=== PATIENT | female | born 1945 | race Caucasian/White ===

== ENCOUNTER 2017-06-18 18:02 | Inpatient (IN) | payer OTHER, BC ==
--- NOTE | 2017-06-18 18:22 | PDOC ---
Rapid Medical Evaluation Time Seen by Provider: 06/18/17 18:22 Medical Evaluation: Allergies Allergy/AdvReac Type Severity Reaction Status Date / Time No Known Allergies Allergy Verified 01/13/17 10:59 06/18/17 18:22 I have performed a brief in-person evaluation of this patient. The patient presents with a chief complaint of: LLE pain and swelling getting worse x 1 month, seen by tree feller and sent in for possible LLE cellulitis. No fever/malaise. H/o venous insuff (f/u with Dr Carvajal), hypothyroid, Pertinent physical exam findings:Diffuse swelling w/ erythema extending to medial aspect of L thigh I have ordered the following:labs The patient will proceed to the ED for further evaluation Discharge Disposition - Diagnosis Cellulitis of leg Qualifiers: Laterality: left Qualified Code(s): L03.116 - Cellulitis of left lower limb - Referrals - Patient Instructions - Post Discharge Activity
[2017-06-18 19:33] LABS: BASO % 1.3 % (0-2.0); EOS % 2.8 % (0-4.5); HEMATOCRIT 35.9 % (32.4-45.2); HEMOGLOBIN 12.3 GM/dL (10.7-15.3); LYMPH % 24.8 % (8-40); MCH 30.4 pg (25.7-33.7); MCHC 34.3 g/dl (32.0-36.0); MEAN CELL VOLUME 88.6 fl (80-96); MEAN PLT VOLUME 8.4 fl (7.5-11.1); MONO % 8.9 % (3.8-10.2); NEUT % 62.2 % (42.8-82.8); PLATELET COUNT 215 K/MM3 (134-434); RBC 4.05 M/mm3 (3.60-5.2); RDW 13.6 % (11.6-15.6); WHITE BLOOD COUNT 6.1 K/mm3 (4.0-10.0)
--- NOTE | 2017-06-18 19:49 | PDOC ---
History of Present Illness - General Chief Complaint: Wound Stated Complaint: SWOLLEN LT LEG Time Seen by Provider: 06/18/17 18:22 - History of Present Illness Initial Comments: The patient is a 72 year old female, with a significant past medical history of hypothyroidism, HTN, who presents to the emergency department complaining of one month of L leg after rig hand procedure for endometrial sampling and/or D+C. Pt states she began having L inguinal pain roughly 6 weeks ago and received a TVUS notable for L ovarian cyst and endometrial thickening. Underwent procedure for endometrial sampling and D+C in early May. Pt states she received no ABX at the time. After procedure, pt endorses progressive medial thigh edema to mid calf and most recently, purulent The patient denies chest pain, shortness of breath, headache or dizziness. Endorsing chills for last month. Denies fever, nausea, vomiting, diarrhea. Denies dysuria, frequency, urgency and hematuria. Endorse foul smelling urine for last few days and intermittent constipation for the last month. Allergies: Erythromycin Past surgical history: none Social History: Denies toxic habits PMD: Dr. Lucas 06/18/17 19:24 Past History - Past Medical History Allergies/Adverse Reactions: Allergies Allergy/AdvReac Type Severity Reaction Status Date / Time erythromycin base AdvReac Verified 06/18/17 18:22 Home Medications: Ambulatory Orders Levothyroxine [Synthroid -] 50 mcg PO HS 06/18/17 Levothyroxine [Synthroid -] 75 mcg PO AM 06/18/17 Olmesartan/Hydrochlorothiazide [Benicar Hct 20-12.5MG Tab] 1 tab PO ASDIR COPD: No HTN: Yes Thyroid Disease: Yes (Hypothyroidism) - Suicide/Smoking/Psychosocial Hx Smoking History: Former smoker Have you smoked in the past 12 months: No Information on smoking cessation initiated: No Review of Systems - Review of Systems Comments:: GENERAL/CONSTITUTIONAL: +Chills for last month. No fever. No weakness. HEAD, EYES, EARS, NOSE AND THROAT: No change in vision. No ear pain or discharge. No sore throat. CARDIOVASCULAR: No chest pain or shortness of breath RESPIRATORY: No cough, wheezing, or hemoptysis. GASTROINTESTINAL: No nausea, vomiting, diarrhea or constipation. GENITOURINARY: Foul smelling urine. No dysuria, frequency, or change in urination. MUSCULOSKELETAL: No joint or muscle swelling or pain. No neck or back pain. SKIN: No rash NEUROLOGIC: No headache, vertigo, loss of consciousness, or change in strength/ sensation. ENDOCRINE: No increased thirst. No abnormal weight change HEMATOLOGIC/LYMPHATIC: No anemia, easy bleeding, or history of blood clots. ALLERGIC/IMMUNOLOGIC: No hives or skin allergy. EXTREMITIES: L leg swelling, erythema. 06/18/17 19:24 06/18/17 21:52 *Physical Exam - Vital Signs Last Vital Signs Temp Pulse Resp BP Pulse Ox 99 F 87 19 131/78 100 06/18/17 18:23 06/18/17 18:23 06/18/17 18:23 06/18/17 18:23 06/18/17 18:23 - Physical Exam Comments: GENERAL: Elderly obese, woman, awake, alert, and fully oriented, in no acute distress HEAD: No signs of trauma, normocephalic, atraumatic EYES: PERRLA, EOMI, sclera anicteric, conjunctiva clear ENT: Auricles normal inspection, hearing grossly normal, nares patent, oropharynx clear without exudates. Moist mucosa NECK: Normal ROM, supple, no lymphadenopathy, JVD, or masses LUNGS: No distress, speaks full sentences, clear to auscultation bilaterally HEART: Regular rate and rhythm, normal S1 and S2, no murmurs, rubs or gallops, peripheral pulses normal and equal bilaterally. ABDOMEN: Soft, nontender, normoactive bowel sounds. No guarding, no rebound. No masses EXTREMITIES : Large region of erythema/edema on medial thigh and upper shank, warm to touch with no open lesions, nontender to palpation. BL venous stasis dermatitis. Lower anterior caldwell wound with purulent drainage, nonfluctuant, TTP with trace marginal erythema. 2+ DIRECTOR OF STATE edema. No clubbing or cyanosis. BL nonpalpable PT, DP pulses. NEUROLOGICAL: Cranial nerves II through XII grossly intact. Normal speech, normal gait, no focal sensorimotor deficits SKIN: Warm, Dry, normal turgor, no rashes or lesions noted 06/18/17 21:53 ED Treatment Course - LABORATORY CBC & Chemistry Diagram: 06/18/17 19:07 06/18/17 19:07 Medical Decision Making - Medical Decision Making 72 yo woman with pmh of hypothyroidism and HTN who presents with one month of L leg erythema/edema and purulent wound on anterior distal caldwell. VSS, no fever, no WBC count. CBC, CMP, blood cultures sent. Will order CXR, EKG, wound culture , UA, L leg XR. Will consult ID and vascular and admit to hospitalist group for observation. Ordered for 1x dose of vancomycin. 06/18/17 21:56 Discussed case with Hospitalist Dr. Wright. Will admit to M/S for IV abx. ID and Vascular consulted. 06/18/17 22:26 *DC/Admit/Observation/Transfer Diagnosis at time of Disposition: Cellulitis of leg Qualifiers: Laterality: left Qualified Code(s): L03.116 - Cellulitis of left lower limb - Discharge Dispostion Decision to Admit order: Yes - Referrals Referrals: Tony Lucas MD [Primary Care Provider] - - Patient Instructions - Post Discharge Activity
[2017-06-18 19:52] LABS: CHLORIDE 106 mmol/L (98-107); SODIUM 141 mmol/L (136-145)
[2017-06-18 20:03] LABS: ALBUMIN 3.8 g/dl (3.4-5.0); ALK PHOS 62 U/L (45-117); ANION GAP 7 (8-16); BILIRUBIN,TOTAL 0.5 mg/dL (0.2-1.0); BLOOD UREA NITROGEN 16 mg/dL (7-18); CALCIUM 9.3 mg/dL (8.5-10.1); CO2 28 mmol/L (21-32); GLUCOSE,RANDOM 113 mg/dL (74-106); SGOT/AST 17 U/L (15-37); SGPT/ALT 22 U/L (12-78); TOT PROT 7.2 g/dl (6.4-8.2)
[2017-06-18] MEDS ORDERED: VANCOMYCIN 1,250 MG in DEXTROSE 5%-WATER - 250 ML IVPB ONE (21:38)
[2017-06-18 22:00] LABS: URINE APPEARANCE SLCLOUDY; URINE BILIRUBIN NEGATIVE (<2.0 mg/dL); URINE COLOR YELLOW; URINE GLUCOSE (UA) NEGATIVE (NEGATIVE); URINE KETONE NEGATIVE (NEGATIVE); URINE LEUK ESTERASE NEGATIVE (NEGATIVE); URINE NITRITE NEGATIVE (NEGATIVE); URINE PROTEIN NEGATIVE (NEGATIVE); URINE UROBILINOGEN 4.0 E.U/dl mg/dL (0.2-1.0)
--- NOTE | 2017-06-18 22:31 | HP ---
CHIEF COMPLAINT: sent by MD for left lower leg wound PCP: Dr. Lucas HISTORY OF PRESENT ILLNESS: 72yo woman with PMH of HTN, hypothyroidism, chronic LE venous insufficiency, and recent endometrial biopsy who presents to ED from her nurse aide evaluator/PCP for LLE swelling and purulent wound on L lower anterior ankle. Patient saw Dr. Carvajal in January 2017, found to have venous reflux, and was planning to have ablation. Since then she developed L inguinal pain, which is currently being worked-up by OBGYN as there is concern for endometrial cancer (thickened endometrial strip on TVUS, early menarche, DTR with Breast Ca). Patient underwent attempted endometrial sampling in May, however bx unable to be obtained due to pt's anatomy. After the procedure, the patient reports worsening L medial calf and thigh swelling. Two days ago she had duplex ultrasound, which was negative for DVT. Starting yesterday, she noticed that her L ankle started to drain clear fluid. She went to her Telegraphic Typewriter Installer today, who sent her to ED for further evaluation. Patient denies any recent trauma to the area. Denies fevers, but endorses chills for last month. No nausea, vomiting, diarrhea. Denies dysuria, frequency, urgency and hematuria. Endorse foul smelling urine for last few days and intermittent constipation for the last month. ER course was notable for: (1) Afebrile, no leukocytosis (2) 1x Vanc 1250mg IVP (3) L tibial/fibula XRAY: e/o soft tissue swelling over proximal tibial shaft Recent Travel: none PAST MEDICAL HISTORY: see HPI Hypothyroidism - PCP increased AM dose from 50 to 75mcg on 06/13/17 HTN - on Benicar Q4Days - due for dose today PAST SURGICAL HISTORY: colonoscopy within past year - "normal" Social History: Smoking: quit 52 years ago, smoked for 2-3years Alcohol: social Drugs: denies Family History: daughter with thyroid Ca and daughter with breast Ca Allergies/Adverse Reactions: Erythromycin --> "upset my hiatal hernia" HOME MEDICATIONS: Home Medications Medication Instructions Recorded Levothyroxine [Synthroid -] 50 mcg PO HS 06/18/17 Levothyroxine [Synthroid -] 75 mcg PO AM 06/18/17 Olmesartan/Hydrochlorothiazide 1 tab PO ASDIR 06/18/17 [Benicar Hct 20-12.5MG Tab] REVIEW OF SYSTEMS CONSTITUTIONAL: +chills Absent: fever, diaphoresis, generalized weakness, malaise, loss of appetite, weight change HEENT: Absent: rhinorrhea, nasal congestion, throat pain, throat swelling, difficulty swallowing, mouth swelling, ear pain, eye pain, visual changes CARDIOVASCULAR: Absent: chest pain, syncope, palpitations, irregular heart rate, lightheadedness , peripheral edema RESPIRATORY: Absent: cough, shortness of breath, dyspnea with exertion, orthopnea, wheezing, stridor, hemoptysis GASTROINTESTINAL: Absent: abdominal pain, abdominal distension, nausea, vomiting, diarrhea, constipation, melena, hematochezia GENITOURINARY: Absent: dysuria, frequency, urgency, hesitancy, hematuria, flank pain, genital pain MUSCULOSKELETAL: Absent: myalgia, arthralgia, joint swelling, back pain, neck pain SKIN: Absent: rash, itching, pallor HEMATOLOGIC/IMMUNOLOGIC: Absent: easy bleeding, easy bruising, lymphadenopathy, frequent infections ENDOCRINE: Absent: unexplained weight gain, unexplained weight loss, heat intolerance, cold intolerance NEUROLOGIC: Absent: headache, focal weakness or paresthesias, dizziness, unsteady gait, seizure, mental status changes, bladder or bowel incontinence PSYCHIATRIC: Absent: anxiety, depression, suicidal or homicidal ideation, hallucinations. PHYSICAL EXAMINATION Vital Signs - 24 hr 06/18/17 18:23 Temperature 99 F Pulse Rate 87 Respiratory 19 Rate Blood Pressure 131/78 O2 Sat by Pulse 100 Oximetry (%) GENERAL: aaox3, nad HEENT: PERRLA, EOMI, sclera anicteric, conjunctiva clear, mmm, no pharygeal erythema NECK: supple, no cervical LAD LUNGS: CTAB HEART: rrr, normal s1/s2, no m/r/g ABDOMEN: soft, obese, NTND UPPER EXTREMITIES: 2+ radial pulses, wwp, no edema LOWER EXTREMITIES: 2+ DP pulses, B/L venous stasis dermatitis, L distal anterior caldwell lesion with purulent drainage, calor, rubor, and ttp. L medial calf and lower thigh with erythema, but no ttp; 2+ non-pitting edema bilaterally. No L inguinal LAD NEUROLOGICAL: Cranial nerves II-XII intact. motor strength 5/5 in all 4 extremities; sensation intact bilaterally CBC, BMP 06/18/17 19:07 06/18/17 19:07 Hepatic Panel Total Bilirubin 0.5 mg/dL (0.2-1.0) 06/18/17 19:07 AST 17 U/L (15-37) 06/18/17 19:07 ALT 22 U/L (12-78) 06/18/17 19:07 Alkaline Phosphatase 62 U/L (45-117) 06/18/17 19:07 Albumin 3.8 g/dl (3.4-5.0) 06/18/17 19:07 Urine Test Results Urine Color Yellow 06/18/17 21:53 Urine Appearance Slcloudy 06/18/17 21:53 Urine pH 6.0 (5.0-8.0) 06/18/17 21:53 Ur Specific [place] 1.017 (1.001-1.035) 06/18/17 21:53 Urine Protein Negative (NEGATIVE) 06/18/17 21:53 Urine Glucose (UA) Negative (NEGATIVE) 06/18/17 21:53 Urine Ketones Negative (NEGATIVE) 06/18/17 21:53 Urine Blood Negative (NEGATIVE) 06/18/17 21:53 Urine Nitrite Negative (NEGATIVE) 06/18/17 21:53 Urine Bilirubin Negative (<2.0 mg/dL) 06/18/17 21:53 Ur Leukocyte Esterase Negative (NEGATIVE) 06/18/17 21:53 EKG: NSR, rate 73, with PVCs, no ST/ T changes, QTc 440 CXR: no acute cardiopulmonary disease L Tibia/Fibula XRAY (06/18/17): significant soft tissue swelling along anterior margin of the proximal tibial shaft ASSESSMENT/PLAN: 72yo woman with PMH of hypothyroidism, HTN, LE venous insufficiency who sent by nurse aide evaluator/PCP to the ED for LLE swelling and L ankle skin lesion with purulent drainage concerning for cellulitis. #LLE cellulitis in setting of chronic venous insufficiency -ID consulted. Appreciate antibiotic recommendations -Received 1x Vanco 1.25gm IV Q12H --> next dose ordered for 10:30 -Ceftriaxone 2gm IV Q24H for GN coverage -Check ESR, CRP -Check wound culture #LLE swelling and chronic venous insufficiency -Vascular surgery (Dr. Carvajal) consulted -Check LLE Duplex U/S to r/o DVT #HTN - c/w home Benicar Q4D (took dose today) #Hypothyroidism - c/w home Synthroid 75mcg AM and 50mcg HS #FEN PO intake lytes wnl Na controlled diet #PPX - Lovenox 40mg SQ #DISPO: m/s FULL code plan d/w Dr. Adriana Adams MD PGY1 - Internal Medicine, Night Kitchen Aide Visit type - Emergency Visit Emergency Visit: Yes ED Registration Date: 06/18/17 Care time: The patient presented to the Emergency Department on the above date and was hospitalized for further evaluation of their emergent condition. - New Patient This patient is new to me today: Yes Date on this admission: 06/19/17 - Critical Care Critical Care patient: No Hospitalist Screening - Colonoscopy Questionnaire Colonoscopy Questionnaire: Colonoscopy Questionnaire - Patient: 50 - 75 years old and never had a screening colonoscopy: No History of colon or rectal polyps, or CA: No History of IBD, Crohn's disease or UC: No History of abdominal radiation therapy as a child: No - Relative: 1 with colon or rectal CA, or polyps at age 60 or younger: Unknown Colon or rectal CA diagnosed at age 45 or younger: Unknown Multiple relatives with colon or rectal CA: Unknown - Outcome: Screening Result: Negative Screen
--- NOTE | 2017-06-18 22:42 | PDOC ---
Attending Attestation - HPI HPI: 06/18/17 22:50 The patient is a 72 year old female with past medical history of hypothyroidism , hypertension, and recent endometrial biopsy last month who presents to the ED with complaints of left inguinal pain for the past month. She reports that since her procedure her left inner thigh has been tender, swollen and recently became purulent. She denies any abdominal pain. After the procedure she was never given antibiotics. The patient denies any fevers but reports chills. She also reports having chronic venous stasis with presence of purulent wounds that her PMD wanted to be evaluated. Denies any nausea, vomiting, diarrhea, cough , SOB, CP, or urinary symptoms. - Physicial Exam PE: 06/18/17 22:50 GENERAL: Anxious. Awake, alert, and fully oriented, in no acute distress HEAD: No signs of trauma EYES: PERRLA, EOMI, sclera anicteric, conjunctiva clear ENT: Auricles normal inspection, hearing grossly normal, nares patent, oropharynx clear without exudates. Moist mucosa NECK: Normal ROM, supple, no lymphadenopathy, JVD, or masses LUNGS: Breath sounds equal, clear to auscultation bilaterally. No wheezes, and no crackles HEART: Regular rate and rhythm, normal S1 and S2, no murmurs, rubs or gallops ABDOMEN: Obese. Soft, nontender, normoactive bowel sounds. No guarding, no rebound. No masses EXTREMITIES: R leg has chronic venous stasis of the mid tibia, distal to ankle. LLE has calf swelling with hot, tender, red cellulitis ranging proximally from ankle to tibia/fibula with lymphangetic streak to mid quad. There is also an ulcer with purulent drainage in the anterior tibula region. Normal range of motion. No clubbing or cyanosis. NEUROLOGICAL: Cranial nerves II through XII grossly intact. Normal speech, normal gait SKIN: Warm, Dry, normal turgor, no rashes or lesions no - Medical Decision Making 06/18/17 22:50 Documentation prepared by Soledad Pinto, acting as certified medical biller for Jovita Sepulveda DO. <Soledad Pinto - Last Filed: 06/18/17 22:50> - Resident Resident Name: Manuel Corbin - ED Attending Attestation I have performed the following: I have examined & evaluated the patient, The case was reviewed & discussed with the resident, I agree w/resident's findings & plan, Exceptions are as noted - Medical Decision Making 06/18/17 22:41 I, Dr. Jovita Sepulveda, DO, attest that this document has been prepared under my direction and personally reviewed by me in its entirety. I further attest, that it accurately reflects all work, treatment, procedures and medical decision -making performed by me. 06/18/17 23:02 a/p: 72yo female with L leg swelling -wound to the distal L tibia with purulent drainage -cellulitis to L leg with lymphangitic spread -will check labs, cultures, will start abx -consult placed to ID and vascular sx -will check xrays -no fluctuance, no crepitus -will need admission <Jovita Sepulveda - Last Filed: 06/18/17 23:11> Heart Score/ECG Review - ECG Intrepretation Comment:: 06/18/17 22:41 sinus at 72, nl axis, low voltage, pvc, no acute st/t wave findings <Jovita Sepulveda - Last Filed: 06/18/17 23:11>
[2017-06-18] MEDS ORDERED: PATIENT'S OWN MEDICATION (NON-FORMULARY) (Olmesartan/Hydrochlorothiazide [Benicar Hct 20-1 PO SCH (23:30)
[2017-06-18] MEDS ORDERED: VALSARTAN 160 MG TABLET (UD) PO SCH (23:45)
[2017-06-18] MEDS ORDERED: HYDROCHLOROTHIAZIDE 12.5 MG CAPSULE (FP) PO SCH (23:45)
[2017-06-18] MEDS ORDERED: CEFTRIAXONE 2 GM in DEXTROSE 5%-WATER 100 ML IVPB ONE (23:56)
[2017-06-19] MEDS: PATIENT'S OWN MEDICATION (NON-FORMULARY) (Olmesartan/Hydrochlorothiazide [Benicar Hct 20-1 PO SCH (01:06)
[2017-06-19] MEDS ORDERED: LEVOTHYROXINE NA 25 MCG TABLET (FP) ONE (01:16)
[2017-06-19] MEDS ORDERED: CEFTRIAXONE 2 GM/100 ML BAG IVPB ONE (01:17)
[2017-06-19] MEDS: LEVOTHYROXINE NA 50 MCG TABLET (FP) PO SCH ×2 (01:27→22:07)
--- NOTE | 2017-06-19 01:39 | PN ---
Teaching Attending Note Name of Resident: Carmen Adams ATTENDING PHYSICIAN STATEMENT I saw and evaluated the patient. Chart, data, imaging reviewed. I reviewed the resident's note and discussed the case with the resident. I agree with the resident's findings and plan as documented. SUBJECTIVE: 72 year old woman with past medical history of hypothyroidism, hypertension, and recent endometrial biopsy one month ago c/o of left inguinal pain after tour narrator procedure and left inner thigh and leg pain associated with redness and warmth of left leg. Denied fevers and chills. Has not taken any antibiotics recently. OBJECTIVE: Last Vital Signs Temp Pulse Resp BP Pulse Ox 99 F 87 19 131/78 100 06/18/17 18:23 06/18/17 18:23 06/18/17 18:23 06/18/17 18:23 06/18/17 18:23 general- nad, aaox3, morbdily obese heent- at, nc, moist oral mucosa neck -supple cv -s1+s2+ rrr chest- cta b/l abdomen -obese ext -b/l chronic venous stasis changes, left leg erythema, warmth, seeping d/c, and some tenderness to palpation Abnormal Lab Results 06/18/17 06/18/17 19:07 21:53 Anion Gap 7 L Random Glucose 113 H Urine Urobilinogen 4.0 e.u/dl H ASSESSMENT AND PLAN: #B/l lower extremity chronic venous stasis with left leg superimposed cellulitis. Possible that OBGYN procedure induced cellulitis by hematologic seeding. -admit to med/surg -repeat lower extremity duplex u/s to r/o dvt -vancomycin 1.25g iv q12hrs -ceftriaxone 2g IV q 24hrs -leg elevation -send blood cultures x2 -tylenol prn for pain management -ID and vascular evaluation -esr, crp -continue home meds -heparin sc for dvt ppx
[2017-06-19] MEDS ORDERED: diphenhydrAMINE HCL 25 MG CAPSULE (FP) PO PRN (02:23)
[2017-06-19] MEDS: LEVOTHYROXINE NA 75 MCG TABLET (FP) PO SCH (06:31)
--- NOTE | 2017-06-19 09:25 | PN ---
Teaching Attending Note Name of Resident: Dilma Diaz ATTENDING PHYSICIAN STATEMENT I saw and evaluated the patient. I reviewed the resident's note and discussed the case with the resident. I agree with the resident's findings and plan as documented. SUBJECTIVE: Patient is feeling better with no acute distress, stated that she is feeling better. OBJECTIVE: Vital Signs Temperature 97.9 F 06/19/17 04:50 Pulse Rate 79 06/19/17 04:50 Respiratory Rate 20 06/19/17 04:50 Blood Pressure 130/84 06/19/17 04:50 O2 Sat by Pulse Oximetry (%) 95 06/19/17 04:34 CBCD WBC 6.1 K/mm3 (4.0-10.0) 06/18/17 19:07 RBC 4.05 M/mm3 (3.60-5.2) 06/18/17 19:07 Hgb 12.3 GM/dL (10.7-15.3) 06/18/17 19:07 Hct 35.9 % (32.4-45.2) 06/18/17 19:07 MCV 88.6 fl (80-96) 06/18/17 19:07 MCHC 34.3 g/dl (32.0-36.0) 06/18/17 19:07 RDW 13.6 % (11.6-15.6) 06/18/17 19:07 Plt Count 215 K/MM3 (134-434) 06/18/17 19:07 MPV 8.4 fl (7.5-11.1) 06/18/17 19:07 CMP Sodium 141 mmol/L (136-145) 06/18/17 19:07 Potassium 4.0 mmol/L (3.5-5.1) 06/18/17 19:07 Chloride 106 mmol/L (98-107) 06/18/17 19:07 Carbon Dioxide 28 mmol/L (21-32) 06/18/17 19:07 Anion Gap 7 (8-16) L 06/18/17 19:07 BUN 16 mg/dL (7-18) 06/18/17 19:07 Creatinine 1.0 mg/dL (0.55-1.02) 06/18/17 19:07 Creat Clearance w eGFR 54.35 (>60) 06/18/17 19:07 Random Glucose 113 mg/dL (74-106) H 06/18/17 19:07 Calcium 9.3 mg/dL (8.5-10.1) 06/18/17 19:07 Total Bilirubin 0.5 mg/dL (0.2-1.0) 06/18/17 19:07 AST 17 U/L (15-37) 06/18/17 19:07 ALT 22 U/L (12-78) 06/18/17 19:07 Alkaline Phosphatase 62 U/L (45-117) 06/18/17 19:07 Total Protein 7.2 g/dl (6.4-8.2) 06/18/17 19:07 Albumin 3.8 g/dl (3.4-5.0) 06/18/17 19:07 Current Medications Generic Name Dose Route Start Last Admin Trade Name Freq PRN Reason Stop Dose Admin Acetaminophen 650 mg 06/18/17 23:17 Tylenol - PO Q6H PRN PAIN LEVEL 6-10 Diphenhydramine HCl 25 mg 06/19/17 02:23 Benadryl - PO 06/20/17 02:22 ONCE PRN FOR ITCHING Enoxaparin Sodium 40 mg 06/19/17 10:00 Lovenox - SQ DAILY BENITA Ceftriaxone Sodium 2 gm/ 100 mls @ 100 mls/hr 06/19/17 23:00 Dextrose IVPB 06/19/17 23:59 ONCE ONE Vancomycin HCl 1,250 mg/ 250 mls @ 250 mls/2 hr 06/19/17 10:30 Dextrose IVPB 06/19/17 12:29 ONCE ONE Protocol Levothyroxine Sodium 50 mcg 06/18/17 22:00 06/19/17 01:27 Synthroid - PO 50 mcg HS BENITA Administration Levothyroxine Sodium 75 mcg 06/19/17 07:00 06/19/17 06:31 Synthroid - PO 75 mcg AM BENITA Administration Non-Formulary Medication 1 tab 06/18/17 23:59 06/19/17 01:06 Olmesartan/Hydrochlorothiazide [Benicar Hct 20-12.5mg Tab -] PO 1 tab Q4D@1000 BENITA Administration Home Medications Medication Instructions Recorded Levothyroxine [Synthroid -] 50 mcg PO HS 06/18/17 Levothyroxine [Synthroid -] 75 mcg PO AM 06/18/17 Olmesartan/Hydrochlorothiazide 1 tab PO ASDIR 06/18/17 [Benicar Hct 20-12.5MG Tab] PE: LLE chronic statis with cellulitis rest of Pe per resident's note EKG: NSR, rate 73, with PVCs, no ST/ T changes, QTc 440 CXR: no acute cardiopulmonary disease L Tibia/Fibula XRAY (06/18/17): significant soft tissue swelling along anterior margin of the proximal tibial shaft ASSESSMENT AND PLAN: 72yo woman with PMH of hypothyroidism, HTN, LE venous insufficiency who sent by information lead/PCP to the ED for LLE swelling and L ankle skin lesion with purulent drainage concerning for cellulitis. #Acute LLE cellulitis in setting of chronic venous insufficiency, continue IV antibiotic Rocephin and Vanco; ID and Vascular on the case. -Check LLE Duplex U/S to r/o DVT #HTN - c/w home Benicar Q4D (took dose today) #Hypothyroidism - continue home Synthroid 75mcg AM and 50mcg HS #PPX - Lovenox 40mg SQ
[2017-06-19] MEDS ORDERED: PT OWN MED DRAWER 7, Y5N ONE (09:39)
[2017-06-19] MEDS: ENOXAPARIN NA (PORCINE) 40 MG/0.4 ML DISP.SYRIN SQ SCH (09:42)
[2017-06-19 10:12] LABS: BASO % 2.6 % (0-2.0); EOS % 2.2 % (0-4.5); HEMATOCRIT 37.4 % (32.4-45.2); HEMOGLOBIN 12.8 GM/dL (10.7-15.3); LYMPH % 27.6 % (8-40); MCH 30.5 pg (25.7-33.7); MCHC 34.4 g/dl (32.0-36.0); MEAN CELL VOLUME 88.9 fl (80-96); MEAN PLT VOLUME 8.1 fl (7.5-11.1); MONO % 7.7 % (3.8-10.2); NEUT % 59.9 % (42.8-82.8); PLATELET COUNT 217 K/MM3 (134-434); RBC 4.21 M/mm3 (3.60-5.2); RDW 13.9 % (11.6-15.6); WHITE BLOOD COUNT 6.3 K/mm3 (4.0-10.0)
[2017-06-19 10:25] LABS: ANION GAP 7 (8-16); BLOOD UREA NITROGEN 13 mg/dL (7-18); CALCIUM 9.8 mg/dL (8.5-10.1); CHLORIDE 104 mmol/L (98-107); CO2 28 mmol/L (21-32); GLUCOSE,RANDOM 95 mg/dL (74-106); SODIUM 139 mmol/L (136-145)
[2017-06-19] MEDS ORDERED: VANCOMYCIN 1,250 MG in DEXTROSE 5%-WATER - 250 ML IVPB ONE (10:30)
--- NOTE | 2017-06-19 11:43 | EKG ---
Test Reason : Blood Pressure : / mmHG Vent. Rate : 073 BPM Atrial Rate : 073 BPM P-R Int : 172 ms QRS Dur : 086 ms QT Int : 400 ms P-R-T Axes : 053 017 019 degrees QTc Int : 440 ms SINUS RHYTHM WITH OCCASIONAL PREMATURE VENTRICULAR COMPLEXES LOW VOLTAGE QRS CANNOT RULE OUT ANTERIOR INFARCT , AGE UNDETERMINED ABNORMAL ECG NO PREVIOUS ECGS AVAILABLE Confirmed by JESSICA ELLIS MD ([id number]) on 06/19/2017 11:43:19 AM Referred By: Confirmed By:JESSICA ELLIS MD
--- NOTE | 2017-06-19 14:33 | PN ---
Physical Exam: SUBJECTIVE: Patient seen and examined at bedside. States that her L inguinal pain has improved greatly while she has been on abx. Has been ambulating freely. Denies GARCIA, fever, chills, SOB, or changes in urinary or bowel function. OBJECTIVE: Vital Signs Period Temp Pulse Resp BP Sys/Dunbar Pulse Ox Last 24 Hr 97.2 F-99 F 69-87 19-20 114-131/53-84 95-100 GENERAL: Pleasant female. sitting comfortably. awake, alert, and fully oriented , in no acute distress. HEAD: Normal with no signs of trauma. EYES: PERRL, extraocular movements intact, sclera anicteric, conjunctiva clear. ENT: Ears normal, nares patent, oropharynx clear without exudates, moist mucous membranes. NECK: Trachea midline, supple. LUNGS: Breath sounds equal, clear to auscultation bilaterally, no wheezes, no crackles, no accessory muscle use. HEART: Regular rate and rhythm, S1, S2 without murmur, rub or gallop. ABDOMEN: Soft, obese, nontender, nondistended, normoactive bowel sounds, no guarding, no rebound EXTREMITIES: 2+ dorsalis pedis pulses. +b/l venous insufficiency, +L anterior ankle wound - with serous drainage. increased warmth in LE>RE NEUROLOGICAL: Cranial nerves II through XII grossly intact. Normal speech PSYCH: Positive mood, normal affect. SKIN: Warm, dry, normal turgor, no rashes or lesions noted Laboratory Results 06/18/17 06/18/17 06/18/17 19:07 19:07 21:53 WBC 6.1 RBC 4.05 Hgb 12.3 Hct 35.9 MCV 88.6 MCH 30.4 MCHC 34.3 RDW 13.6 Plt Count 215 MPV 8.4 Neutrophils % 62.2 Lymphocytes % 24.8 Monocytes % 8.9 Eosinophils % 2.8 Basophils % 1.3 ESR Sodium 141 Potassium 4.0 Chloride 106 Carbon Dioxide 28 Anion Gap 7 L BUN 16 Creatinine 1.0 Creat Clearance w eGFR 54.35 Random Glucose 113 H Calcium 9.3 Total Bilirubin 0.5 AST 17 ALT 22 Alkaline Phosphatase 62 C-Reactive Protein Total Protein 7.2 Albumin 3.8 Urine Color Yellow Urine Appearance Slcloudy Urine pH 6.0 Ur Specific [place] 1.017 Urine Protein Negative Urine Glucose (UA) Negative Urine Ketones Negative Urine Blood Negative Urine Nitrite Negative Urine Bilirubin Negative Urine Urobilinogen 4.0 e.u/dl H Ur Leukocyte Esterase Negative 06/19/17 06/19/17 06/19/17 00:39 00:39 09:50 WBC 6.3 RBC 4.21 Hgb 12.8 Hct 37.4 MCV 88.9 MCH 30.5 MCHC 34.4 RDW 13.9 Plt Count 217 MPV 8.1 Neutrophils % 59.9 Lymphocytes % 27.6 Monocytes % 7.7 Eosinophils % 2.2 Basophils % 2.6 H ESR 54 H Sodium Chloride Alkaline Phosphatase C-Reactive Protein 2.4 H Total Protein Urine Urobilinogen Ur Leukocyte Esterase Active Medications Generic Name Dose Route Start Last Admin Trade Name Freq PRN Reason Stop Dose Admin Acetaminophen 650 mg 06/18/17 23:17 Tylenol - PO Q6H PRN PAIN LEVEL 6-10 Diphenhydramine HCl 25 mg 06/19/17 02:23 Benadryl - PO 06/20/17 02:22 ONCE PRN FOR ITCHING Enoxaparin Sodium 40 mg 06/19/17 10:00 06/19/17 09:42 Lovenox - SQ 40 mg DAILY BENITA Administration Cefazolin Sodium 2 gm/ 50 mls @ 100 mls/hr 06/19/17 14:30 Dextrose IVPB Q8H-IV BENITA Levothyroxine Sodium 50 mcg 06/18/17 22:00 06/19/17 01:27 Synthroid - PO 50 mcg HS BENITA Administration Levothyroxine Sodium 75 mcg 06/19/17 07:00 06/19/17 06:31 Synthroid - PO 75 mcg AM BENITA Administration Non-Formulary Medication 1 tab 06/18/17 23:59 06/19/17 01:06 Olmesartan/Hydrochlorothiazide [Benicar Hct 20-12.5mg Tab -] PO 1 tab Q4D@1000 BENITA Administration Radiology -06/18/17: no acute cardiopulmonary disease is present. 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 Pt admitted for LLE cellulitis, lymphangitis. #LLE cellulitis, lymphangitis -with resolved tenderness in L groin, erythema, edema in LLE. Tracking up leg -With elevated ESR (54), CRP (2.4) -Received vancomycin 1.25g IVPB BID, rocephin 2gm IVPB - received one dose () has been d/c -d/w Dr. Bond - started on cefazolin 2gm IVPB q8h (Today is Day 1- 06/19/17) -F/u gram stain, wound cx, blood cx #LLE swelling, chronic venous insufficiency -Vascular consult- Dr. Carvajal -LLE duplex: (-) DVT #HTN- controlled -Continue olmesartan/HCTZ (20-12.5mg) q4d #Hypothyroidism -Continue home synthroid 75mcg AM, 50 mcg HS #F/E/N Encourage PO fluid intake monitor lytes Na controlled diet #PPX Lovenox 40mg SQ #Dispo continued monitoring on med-surg Visit type - Emergency Visit Emergency Visit: No - New Patient This patient is new to me today: No - Critical Care Critical Care patient: No
--- NOTE | 2017-06-19 14:53 | PN ---
Progress Note (short form) - Note Progress Note: ID Consult dictated Cellulitis / Lymphangitis L LE Chronic venous stasis dermatitis Await c/s Empiric cefazolin 2gm q8h
[2017-06-19] MEDS: CEFAZOLIN 2 GM/D5W 2 GM/50 ML ML IVPB SCH ×2 (15:25→20:20)
--- NOTE | 2017-06-19 15:57 | PN ---
Progress Note (short form) - Note Progress Note: Vascular Surgery Pt with left venous stasis. Pt with pain in hyperpigmented area. IV antibiotics Leg elevation MERLE for compression. Jasmeet Carvajal DO
--- NOTE | 2017-06-19 16:44 | CONS ---
INFECTIOUS DISEASE CONSULTATION DATE OF CONSULTATION: DATE OF DICTATION: 06/19/2017 The patient is a 72-year-old female who is evaluated for cellulitis and lymphangitis of the left lower extremity. Patient underwent an attempted D&C in early May 2017. According to the notes, she was noted to have endometrial thickening on a transvaginal sonogram. The patient reports that the procedure was unsuccessful as the treating plant pumper was unable to perform the D&C. She reports that since that time she has developed progressively worsening pain and swelling in the left lower extremity. She noted erythema of the left lower extremity with lymphangitic streaking. A Doppler exam was performed and was negative for DVT. She was evaluated in the hospital where she was diagnosed with left lower extremity cellulitis and lymphangitis. She was empirically treated with vancomycin and ceftriaxone. At the present time, she complains of pain in the left lower extremity and left medial thigh. She denies any traumatic injury to her left lower extremity. No insect or animal bites or scratches. She denies any associated fever or chills. The patient states she has not had a history of serious soft tissue infection requiring hospitalization and has not had a history of MRSA. PAST MEDICAL HISTORY: Positive for hypothyroidism, hypertension, chronic venous stasis dermatitis. ALLERGIES: ERYTHROMYCIN. MEDICATIONS: Include Tylenol, Lovenox, Benadryl, Synthroid. SOCIAL HISTORY: Lives at home with family members. Denies any recent hospitalizations. She is a former smoker. Occasional EtOH. SYSTEMS REVIEW: Neurologic: No loss of consciousness, seizure activity, focal weakness. Cardiac: Negative chest pain or palpitations. Respiratory: Negative cough or sputum production. Gastrointestinal: Negative vomiting or diarrhea. Genitourinary: Negative for urinary tract infection. LABORATORY DATA: White count 6.3, hematocrit 37.4, platelet count 217. BUN 13, creatinine 1.0. Urinalysis negative. Chest x-ray negative. Blood cultures pending. ESR 54. PHYSICAL EXAMINATION: General: She is awake and alert. She is not acutely toxic appearing. Vital Signs: Temperature 97.9; blood pressure 114/53; pulse 84, regular; respirations 20 per minute. HEENT: Sclerae are anicteric. Heart: Sounds S1, S2. Lungs: Clear. Abdomen: Obese, soft, nontender. Lower Extremities: Bilateral lower extremity chronic venous stasis dermatitis. There is erythema present superimposed on the area of stasis dermatitis extending from the distal left lower extremity to the area of the knee. It extends to the medial thigh. The area is warm and tender to touch. No erythema noted, proximal thigh. No palpable inguinal adenopathy. IMPRESSION: 1. Cellulitis/lymphangitis, left lower extremity. 2. Rule out sepsis secondary to skin source. 3. Chronic venous stasis dermatitis. Await cultures. Empiric antibiotic coverage with cefazolin 2 g IV piggyback every 8 hours. Elevation. Analgesics. Will follow. Thank you for the kind referral. DANNY LOPEZ M.D. ANATOLY/[id number]
[2017-06-19] MEDS ORDERED: CEFTRIAXONE 2 GM in DEXTROSE 5%-WATER 100 ML IVPB ONE (23:00)
[2017-06-20] MEDS: CEFAZOLIN 2 GM/D5W 2 GM/50 ML ML IVPB SCH ×3 (03:08→18:00)
[2017-06-20] MEDS: LEVOTHYROXINE NA 75 MCG TABLET (FP) PO SCH (06:02)
[2017-06-20 07:08] LABS: BASO % 1.3 % (0-2.0); EOS % 2.7 % (0-4.5); HEMATOCRIT 37.7 % (32.4-45.2); HEMOGLOBIN 12.8 GM/dL (10.7-15.3); MCH 30.5 pg (25.7-33.7); MEAN CELL VOLUME 89.7 fl (80-96); MEAN PLT VOLUME 8.4 fl (7.5-11.1); MONO % 7.8 % (3.8-10.2); NEUT % 52.2 % (42.8-82.8); PLATELET COUNT 215 K/MM3 (134-434); RDW 13.6 % (11.6-15.6)
[2017-06-20 07:12] LABS: ANION GAP 6 (8-16); BLOOD UREA NITROGEN 12 mg/dL (7-18); CALCIUM 9.6 mg/dL (8.5-10.1); CHLORIDE 105 mmol/L (98-107); CO2 29 mmol/L (21-32); CREATININE 1.1 mg/dL (0.55-1.02); GLUCOSE,RANDOM 86 mg/dL (74-106); POTASSIUM 4.1 mmol/L (3.5-5.1); SODIUM 140 mmol/L (136-145)
[2017-06-20] MEDS: ENOXAPARIN NA (PORCINE) 40 MG/0.4 ML DISP.SYRIN SQ SCH (10:29)
--- NOTE | 2017-06-20 10:57 | PN ---
Progress Note, Physician History of Present Illness: Awake,alert No c/o leg pain No fever/ chills Afebrile WBC WNL BC (-) Wound c/s SCN - Current Medication List Current Medications: Active Medications Acetaminophen (Tylenol -) 650 mg PO Q6H PRN PRN Reason: PAIN LEVEL 6-10 Enoxaparin Sodium (Lovenox -) 40 mg SQ DAILY [facility] Last Admin: 06/20/17 10:29 Dose: 40 mg Cefazolin Sodium/Dextrose (Ancef 2 Gm Premixed Ivpb -) 2 gm in 50 mls @ 100 mls /hr IVPB Q8H-IV [facility] Last Admin: 06/20/17 10:28 Dose: 100 mls/hr Levothyroxine Sodium (Synthroid -) 50 mcg PO HS [facility] Last Admin: 06/19/17 22:07 Dose: 50 mcg Levothyroxine Sodium (Synthroid -) 75 mcg PO AM [facility] Last Admin: 06/20/17 06:02 Dose: 75 mcg Non-Formulary Medication (Olmesartan/Hydrochlorothiazide [Benicar Hct 20-12.5mg Tab -]) 1 tab PO Q4D@1000 [facility] Last Admin: 06/19/17 01:06 Dose: 1 tab - Objective Vital Signs: Vital Signs Temperature 97.8 F 06/20/17 06:21 Pulse Rate 76 06/20/17 06:21 Respiratory Rate 20 06/20/17 06:21 Blood Pressure 139/73 06/20/17 06:21 O2 Sat by Pulse Oximetry (%) 96 06/19/17 21:00 Constitutional: Yes: No Distress Eyes: Yes: Conjunctiva Clear Cardiovascular: Yes: Regular Rate and Rhythm, S1, S2 Respiratory: Yes: CTA Bilaterally Gastrointestinal: Yes: Normal Bowel Sounds, Soft. No: Tenderness Extremities: Yes: Other (decreased erythema/warmth L LE. Non tender) Labs: CBC, BMP 06/20/17 06:00 06/20/17 06:00 Assessment/Plan Cellulitis/ lymphangitis L LE improved Chronic venous stasis dermatitis Wound c/s SCN likely skin colonizer Continue cefazolin Keflex 500mg po q6h x 7d next 24hr
--- NOTE | 2017-06-20 15:17 | PN ---
<Dilma Diaz - Last Filed: 06/20/17 15:33> Physical Exam: SUBJECTIVE: Patient seen and examined at bedside. Overnight, pt OOB with assist. No acute events. Today, pt OOB, ambulating in hallway. Denies GARCIA, fever , chills, SOB, chest pain, or changes in urinary or bowel function. OBJECTIVE: Vital Signs Period Temp Pulse Resp BP Sys/Dunbar Pulse Ox Last 24 Hr 97.4 F-98.4 F 73-85 18-20 119-139/61-74 96 GENERAL: The patient is sitting up in bed, awake, alert, and fully oriented, in no acute distress. HEAD: Normal with no signs of trauma. EYES: PERRL, extraocular movements intact, sclera anicteric, conjunctiva clear. ENT: Ears normal, nares patent, oropharynx clear without exudates, moist mucous membranes. NECK: Trachea midline, full range of motion, supple. LUNGS: Breath sounds equal, clear to auscultation bilaterally, no wheezes, no crackles, no accessory muscle use. HEART: Regular rate and rhythm, S1, S2 without murmur, rub or gallop. ABDOMEN: Soft, obese, nontender, nondistended, normoactive bowel sounds, no guarding, no rebound EXTREMITIES: 2+ posterior tibial pulses, +b/l chronic venous changes, +warmth (L >R), +L ankle wound - with serous drainage NEUROLOGICAL: Cranial nerves II through XII grossly intact. Normal speech, mild antalgic gait PSYCH: Normal mood, normal affect. SKIN: Warm, dry, normal turgor Laboratory Results - last 24 hr 06/20/17 06/20/17 06:00 06:00 WBC 6.0 RBC 4.20 Hgb 12.8 Hct 37.7 MCV 89.7 MCH 30.5 MCHC 34.0 RDW 13.6 Plt Count 215 MPV 8.4 Neutrophils % 52.2 Lymphocytes % 36.0 D Monocytes % 7.8 Eosinophils % 2.7 Basophils % 1.3 Sodium 140 Potassium 4.1 Chloride 105 Carbon Dioxide 29 Anion Gap 6 L BUN 12 Creatinine 1.1 H Random Glucose 86 Calcium 9.6 Active Medications Generic Name Dose Route Start Last Admin Trade Name Freq PRN Reason Stop Dose Admin Acetaminophen 650 mg 06/18/17 23:17 Tylenol - PO Q6H PRN PAIN LEVEL 6-10 Enoxaparin Sodium 40 mg 06/19/17 10:00 06/20/17 10:29 Lovenox - SQ 40 mg DAILY BENITA Administration Cefazolin Sodium/Dextrose 2 gm in 50 mls @ 100 mls/hr 06/19/17 14:30 10:28 Ancef 2 Gm Premixed Ivpb - IVPB 100 mls/hr Q8H-IV BENITA Administration Levothyroxine Sodium 50 mcg 06/18/17 22:00 06/19/17 22:07 Synthroid - PO 50 mcg HS BENITA Administration Levothyroxine Sodium 75 mcg 06/19/17 07:00 06/20/17 06:02 Synthroid - PO 75 mcg AM BENITA Administration Non-Formulary Medication 1 tab 06/18/17 23:59 06/19/17 01:06 Olmesartan/Hydrochlorothiazide [Benicar Hct 20-12.5mg Tab -] PO 1 tab Q4D@1000 BENITA Administration Microbiology 06/19/17 00:41 Cellulitis Gram Stain - Final 06/19/17 00:41 Cellulitis Wound Culture - Preliminary Staphylococcus Coagulase Neg 06/19/17 00:39 Blood - Peripheral Venous Blood Culture - Preliminary NO GROWTH OBTAINED AFTER 24 HOURS, INCUBATION TO CONTINUE FOR 4 DAYS. 06/19/17 00:39 Blood - Peripheral Venous Blood Culture - Preliminary NO GROWTH OBTAINED AFTER 24 HOURS, INCUBATION TO CONTINUE FOR 4 DAYS. Radiology -06/18/17: no acute cardiopulmonary disease is present. 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 Pt admitted for LLE cellulitis, lymphangitis. #LLE cellulitis, lymphangitis -with resolved tenderness in L groin, erythema, edema in LLE. Tracking up leg; lymphangitis -With elevated ESR (54), CRP (2.4) -wound cx (+) staph coag (-) likely from skin -blood cx (-) so far -Received vancomycin 1.25g IVPB BID, rocephin 2gm IVPB - received one dose () has been d/c -started on cefazolin 2gm IVPB q8h (Today is Day 2) -d/w Dr. Bond, one more day of IV abx, then can switch to keflex 500mg PO q6h x 7 days #LLE swelling, chronic venous insufficiency -Vascular consult- Dr. Carvajal ; MERLE bandage wrap recommended -LLE duplex: (-) DVT #HTN- controlled -Continue olmesartan/HCTZ (20-12.5mg) q4d #Hypothyroidism -Continue home synthroid 75mcg AM, 50 mcg HS #F/E/N Encourage PO fluid intake monitor lytes Na controlled diet #PPX Lovenox 40mg SQ qd #Dispo continued monitoring on med-surg Visit type - Emergency Visit Emergency Visit: No - New Patient This patient is new to me today: No - Critical Care Critical Care patient: No <Vargas Hinds - Last Filed: 06/20/17 19:43> Physical Exam: Patient is looking better the lower extremity is improving. agree with the resident's note Vital Signs Temperature 97.6 F 06/20/17 17:45 Pulse Rate 75 06/20/17 17:45 Respiratory Rate 18 06/20/17 17:45 Blood Pressure 123/56 06/20/17 17:45 O2 Sat by Pulse Oximetry (%) 96 06/20/17 09:00 CBCD WBC 6.0 K/mm3 (4.0-10.0) 06/20/17 06:00 RBC 4.20 M/mm3 (3.60-5.2) 06/20/17 06:00 Hgb 12.8 GM/dL (10.7-15.3) 06/20/17 06:00 Hct 37.7 % (32.4-45.2) 06/20/17 06:00 MCV 89.7 fl (80-96) 06/20/17 06:00 MCHC 34.0 g/dl (32.0-36.0) 06/20/17 06:00 RDW 13.6 % (11.6-15.6) 06/20/17 06:00 Plt Count 215 K/MM3 (134-434) 06/20/17 06:00 MPV 8.4 fl (7.5-11.1) 06/20/17 06:00 CMP Sodium 140 mmol/L (136-145) 06/20/17 06:00 Potassium 4.1 mmol/L (3.5-5.1) 06/20/17 06:00 Chloride 105 mmol/L (98-107) 06/20/17 06:00 Carbon Dioxide 29 mmol/L (21-32) 06/20/17 06:00 Anion Gap 6 (8-16) L 06/20/17 06:00 BUN 12 mg/dL (7-18) 06/20/17 06:00 Creatinine 1.1 mg/dL (0.55-1.02) H 06/20/17 06:00 Creat Clearance w eGFR 54.35 (>60) 06/18/17 19:07 Random Glucose 86 mg/dL (74-106) 06/20/17 06:00 Calcium 9.6 mg/dL (8.5-10.1) 06/20/17 06:00 Total Bilirubin 0.5 mg/dL (0.2-1.0) 06/18/17 19:07 AST 17 U/L (15-37) 06/18/17 19:07 ALT 22 U/L (12-78) 06/18/17 19:07 Alkaline Phosphatase 62 U/L (45-117) 06/18/17 19:07 Total Protein 7.2 g/dl (6.4-8.2) 06/18/17 19:07 Albumin 3.8 g/dl (3.4-5.0) 06/18/17 19:07 Current Medications Generic Name Dose Route Start Last Admin Trade Name Nixonq PRN Reason Stop Dose Admin Acetaminophen 650 mg 06/18/17 23:17 Tylenol - PO Q6H PRN PAIN LEVEL 6-10 Enoxaparin Sodium 40 mg 06/19/17 10:00 06/20/17 10:29 Lovenox - SQ 40 mg DAILY BENITA Administration Cefazolin Sodium/Dextrose 2 gm in 50 mls @ 100 mls/hr 06/19/17 14:30 18:00 Ancef 2 Gm Premixed Ivpb - IVPB 100 mls/hr Q8H-IV BENITA Administration Levothyroxine Sodium 50 mcg 06/18/17 22:00 06/19/17 22:07 Synthroid - PO 50 mcg HS BENITA Administration Levothyroxine Sodium 75 mcg 06/19/17 07:00 06/20/17 06:02 Synthroid - PO 75 mcg AM BENITA Administration Non-Formulary Medication 1 tab 06/18/17 23:59 06/19/17 01:06 Olmesartan/Hydrochlorothiazide [Benicar Hct 20-12.5mg Tab -] PO 1 tab Q4D@1000 BENITA Administration Home Medications Medication Instructions Recorded Levothyroxine [Synthroid -] 50 mcg PO HS 06/18/17 Levothyroxine [Synthroid -] 75 mcg PO AM 06/18/17 Olmesartan/Hydrochlorothiazide 1 tab PO ASDIR 06/18/17 [Benicar Hct 20-12.5MG Tab -] Cephalexin [Keflex] 500 mg PO Q6H #28 capsule 06/20/17
[2017-06-20] MEDS: LEVOTHYROXINE NA 50 MCG TABLET (FP) PO SCH (21:25)
[2017-06-21] MEDS: CEFAZOLIN 2 GM/D5W 2 GM/50 ML ML IVPB SCH ×3 (01:43→17:28)
[2017-06-21] MEDS: LEVOTHYROXINE NA 75 MCG TABLET (FP) PO SCH (06:11)
[2017-06-21 07:38] LABS: BASO % 1.4 % (0-2.0); EOS % 2.8 % (0-4.5); HEMATOCRIT 35.3 % (32.4-45.2); HEMOGLOBIN 12.1 GM/dL (10.7-15.3); LYMPH % 31.2 % (8-40); MCH 30.3 pg (25.7-33.7); MCHC 34.2 g/dl (32.0-36.0); MEAN CELL VOLUME 88.5 fl (80-96); MEAN PLT VOLUME 8.1 fl (7.5-11.1); MONO % 8.9 % (3.8-10.2); NEUT % 55.7 % (42.8-82.8); PLATELET COUNT 198 K/MM3 (134-434); RBC 3.99 M/mm3 (3.60-5.2); RDW 13.7 % (11.6-15.6); WHITE BLOOD COUNT 5.4 K/mm3 (4.0-10.0)
[2017-06-21 08:23] LABS: CHLORIDE 103 mmol/L (98-107); SODIUM 139 mmol/L (136-145)
[2017-06-21 08:30] LABS: ANION GAP 7 (8-16); BLOOD UREA NITROGEN 11 mg/dL (7-18); CALCIUM 9.3 mg/dL (8.5-10.1); CO2 29 mmol/L (21-32); GLUCOSE,RANDOM 84 mg/dL (74-106)
[2017-06-21] MEDS: ENOXAPARIN NA (PORCINE) 40 MG/0.4 ML DISP.SYRIN SQ SCH (11:03)
--- NOTE | 2017-06-21 16:04 | PN ---
Progress Note (short form) - Note Progress Note: Patient is doing better. at bedside. Her takes her leg picture everyday but the picture looks more intense than the actual leg. Vital Signs Temperature 98.0 F 06/21/17 13:51 Pulse Rate 65 06/21/17 13:51 Respiratory Rate 18 06/21/17 13:51 Blood Pressure 136/78 06/21/17 13:51 O2 Sat by Pulse Oximetry (%) 97 06/20/17 21:00 PE: Nice female with morbid obesity BMI of 43 LLE chronic statis with cellulitis improving , still small area of tenderness in the center, slightly whitish area 1x0.5cm. slight erythema in the center area. limited exam CBCD WBC 5.4 K/mm3 (4.0-10.0) 06/21/17 06:00 RBC 3.99 M/mm3 (3.60-5.2) 06/21/17 06:00 Hgb 12.1 GM/dL (10.7-15.3) 06/21/17 06:00 Hct 35.3 % (32.4-45.2) 06/21/17 06:00 MCV 88.5 fl (80-96) 06/21/17 06:00 MCHC 34.2 g/dl (32.0-36.0) 06/21/17 06:00 RDW 13.7 % (11.6-15.6) 06/21/17 06:00 Plt Count 198 K/MM3 (134-434) 06/21/17 06:00 MPV 8.1 fl (7.5-11.1) 06/21/17 06:00 CMP Sodium 139 mmol/L (136-145) 06/21/17 06:00 Potassium 4.0 mmol/L (3.5-5.1) 06/21/17 06:00 Chloride 103 mmol/L (98-107) 06/21/17 06:00 Carbon Dioxide 29 mmol/L (21-32) 06/21/17 06:00 Anion Gap 7 (8-16) L 06/21/17 06:00 BUN 11 mg/dL (7-18) 06/21/17 06:00 Creatinine 1.0 mg/dL (0.55-1.02) 06/21/17 06:00 Creat Clearance w eGFR 54.35 (>60) 06/18/17 19:07 Random Glucose 84 mg/dL (74-106) 06/21/17 06:00 Calcium 9.3 mg/dL (8.5-10.1) 06/21/17 06:00 Total Bilirubin 0.5 mg/dL (0.2-1.0) 06/18/17 19:07 AST 17 U/L (15-37) 06/18/17 19:07 ALT 22 U/L (12-78) 06/18/17 19:07 Alkaline Phosphatase 62 U/L (45-117) 06/18/17 19:07 Total Protein 7.2 g/dl (6.4-8.2) 06/18/17 19:07 Albumin 3.8 g/dl (3.4-5.0) 06/18/17 19:07 Current Medications Generic Name Dose Route Start Last Admin Trade Name Freq PRN Reason Stop Dose Admin Acetaminophen 650 mg 06/18/17 23:17 Tylenol - PO Q6H PRN PAIN LEVEL 6-10 Enoxaparin Sodium 40 mg 06/19/17 10:00 06/21/17 11:03 Lovenox - SQ 40 mg DAILY BENITA Administration Cefazolin Sodium/Dextrose 2 gm in 50 mls @ 100 mls/hr 06/19/17 14:30 11:04 Ancef 2 Gm Premixed Ivpb - IVPB 100 mls/hr Q8H-IV BENITA Administration Levothyroxine Sodium 50 mcg 06/18/17 22:00 06/20/17 21:25 Synthroid - PO 50 mcg HS BENITA Administration Levothyroxine Sodium 75 mcg 06/19/17 07:00 06/21/17 06:11 Synthroid - PO 75 mcg AM BENITA Administration Non-Formulary Medication 1 tab 06/18/17 23:59 06/19/17 01:06 Olmesartan/Hydrochlorothiazide [Benicar Hct 20-12.5mg Tab -] PO 1 tab Q4D@1000 BENITA Administration Home Medications Medication Instructions Recorded Levothyroxine [Synthroid -] 50 mcg PO HS 06/18/17 Levothyroxine [Synthroid -] 75 mcg PO AM 06/18/17 Olmesartan/Hydrochlorothiazide 1 tab PO ASDIR 06/18/17 [Benicar Hct 20-12.5MG Tab -] Cephalexin [Keflex] 500 mg PO Q6H #28 capsule 06/20/17 EKG: NSR, rate 73, with PVCs, no ST/ T changes, QTc 440 CXR: no acute cardiopulmonary disease L Tibia/Fibula XRAY (06/18/17): significant soft tissue swelling along anterior margin of the proximal tibial shaft Microbiology 06/19/17 00:39 Blood - Peripheral Venous Blood Culture - Preliminary NO GROWTH OBTAINED AFTER 72 HOURS, INCUBATION TO CONTINUE FOR 2 DAYS. 06/19/17 00:39 Blood - Peripheral Venous Blood Culture - Preliminary NO GROWTH OBTAINED AFTER 72 HOURS, INCUBATION TO CONTINUE FOR 2 DAYS. 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 #Acute LLE cellulitis with Lymphangitis imroving in setting of chronic venous insufficiency improving still very mild area of tenderness in the center with whitish color , on IV antibiotic cefazolin as per ID and Vascular on the case. upon discharge Keflex 500mg po q6h x 7d next 24hr as per ID . Ill get covering ID to check her LE and get her openion if needed to discharge her for am. Check LLE Duplex U/S :No DVT. final culture is pending #HTN - c/w home Benicar Q4D (took dose today) #Hypothyroidism - continue home Synthroid 75mcg AM and 50mcg HS #PPX - Lovenox 40mg SQ Visit type - Emergency Visit Emergency Visit: Yes ED Registration Date: 06/18/17 Care time: The patient presented to the Emergency Department on the above date and was hospitalized for further evaluation of their emergent condition. - New Patient This patient is new to me today: No - Critical Care Critical Care patient: No - Discharge Referral Referred to [facility] Med P.C.: No
[2017-06-21] MEDS: LEVOTHYROXINE NA 50 MCG TABLET (FP) PO SCH (21:41)
[2017-06-21] MEDS: ACETAMINOPHEN 325 MG TABLET (FP) PO PRN (21:44)
[2017-06-22] MEDS: CEFAZOLIN 2 GM/D5W 2 GM/50 ML ML IVPB SCH ×3 (01:28→18:04)
[2017-06-22] MEDS: ACETAMINOPHEN 325 MG TABLET (FP) PO PRN ×3 (03:47→22:53)
[2017-06-22] MEDS: LEVOTHYROXINE NA 75 MCG TABLET (FP) PO SCH (06:01)
[2017-06-22] MEDS: ENOXAPARIN NA (PORCINE) 40 MG/0.4 ML DISP.SYRIN SQ SCH (10:23)
--- NOTE | 2017-06-22 13:04 | PN ---
Progress Note (short form) - Note Progress Note: unable to sleep overnight due to back and leg pain stiil with signficant leg pain does report less swelling and decreasing erythema Vital Signs Period Temp Pulse Resp BP Sys/Dunbar Pulse Ox Last 24 Hr 97.6 F-98.1 F 65-80 18-20 132-142/72-86 cor-rrr lulngs clear abd soft,nt ext no inguinal swelling still some erythema inner thigh very tender dry ulcer pretibial area bilateral venous stasis CBC, BMP 06/21/17 06:00 06/21/17 06:00 Microbiology 06/19/17 00:39 Blood - Peripheral Venous Blood Culture - Preliminary NO GROWTH OBTAINED AFTER 72 HOURS, INCUBATION TO CONTINUE FOR 2 DAYS. 06/19/17 00:39 Blood - Peripheral Venous Blood Culture - Preliminary NO GROWTH OBTAINED AFTER 72 HOURS, INCUBATION TO CONTINUE FOR 2 DAYS. 06/19/17 00:41 Cellulitis Gram Stain - Final 06/19/17 00:41 Cellulitis Wound Culture - Final Staphylococcus Coagulase Neg a/p cellulitis- slow improvement exquistely tender pretibial ulcer- ?vascular f/u continue ancef hopefully po switch in am
--- NOTE | 2017-06-22 14:52 | PN ---
Progress Note (short form) - Note Progress Note: Patient feels the same , slight tenderness with minimal erythema of LLE. Kir[place]and taking the pictures of LEs on a daily basis but the pictures look worse than the actual LLE. Vital Signs Temperature 97.8 F 06/22/17 13:39 Pulse Rate 82 06/22/17 13:39 Respiratory Rate 18 06/22/17 13:39 Blood Pressure 147/66 06/22/17 13:39 O2 Sat by Pulse Oximetry (%) 97 06/21/17 09:00 PE: Nice female with morbid obesity BMI of 43 LLE chronic statis with cellulitis and improved Lymphangitis( which improved) still small area of tenderness in the center, slightly whitish area 1x0.5cm. slight erythema in the center area. limited exam CBCD WBC 5.4 K/mm3 (4.0-10.0) 06/21/17 06:00 RBC 3.99 M/mm3 (3.60-5.2) 06/21/17 06:00 Hgb 12.1 GM/dL (10.7-15.3) 06/21/17 06:00 Hct 35.3 % (32.4-45.2) 06/21/17 06:00 MCV 88.5 fl (80-96) 06/21/17 06:00 MCHC 34.2 g/dl (32.0-36.0) 06/21/17 06:00 RDW 13.7 % (11.6-15.6) 06/21/17 06:00 Plt Count 198 K/MM3 (134-434) 06/21/17 06:00 MPV 8.1 fl (7.5-11.1) 06/21/17 06:00 CMP Sodium 139 mmol/L (136-145) 06/21/17 06:00 Potassium 4.0 mmol/L (3.5-5.1) 06/21/17 06:00 Chloride 103 mmol/L (98-107) 06/21/17 06:00 Carbon Dioxide 29 mmol/L (21-32) 06/21/17 06:00 Anion Gap 7 (8-16) L 06/21/17 06:00 BUN 11 mg/dL (7-18) 06/21/17 06:00 Creatinine 1.0 mg/dL (0.55-1.02) 06/21/17 06:00 Creat Clearance w eGFR 54.35 (>60) 06/18/17 19:07 Random Glucose 84 mg/dL (74-106) 06/21/17 06:00 Calcium 9.3 mg/dL (8.5-10.1) 06/21/17 06:00 Total Bilirubin 0.5 mg/dL (0.2-1.0) 06/18/17 19:07 AST 17 U/L (15-37) 06/18/17 19:07 ALT 22 U/L (12-78) 06/18/17 19:07 Alkaline Phosphatase 62 U/L (45-117) 06/18/17 19:07 Total Protein 7.2 g/dl (6.4-8.2) 06/18/17 19:07 Albumin 3.8 g/dl (3.4-5.0) 06/18/17 19:07 Current Medications Generic Name Dose Route Start Last Admin Trade Name Freq PRN Reason Stop Dose Admin Acetaminophen 650 mg 06/18/17 23:17 06/22/17 03:47 Tylenol - PO 650 mg Q6H PRN Administration PAIN LEVEL 6-10 Enoxaparin Sodium 40 mg 06/19/17 10:00 06/22/17 10:23 Lovenox - SQ 40 mg DAILY BENITA Administration Cefazolin Sodium/Dextrose 2 gm in 50 mls @ 100 mls/hr 06/19/17 14:30 10:23 Ancef 2 Gm Premixed Ivpb - IVPB 100 mls/hr Q8H-IV BENITA Administration Levothyroxine Sodium 50 mcg 06/18/17 22:00 06/21/17 21:41 Synthroid - PO 50 mcg HS BENITA Administration Levothyroxine Sodium 75 mcg 06/19/17 07:00 06/22/17 06:01 Synthroid - PO 75 mcg AM BENITA Administration Non-Formulary Medication 1 tab 06/18/17 23:59 06/19/17 01:06 Olmesartan/Hydrochlorothiazide [Benicar Hct 20-12.5mg Tab -] PO 1 tab Q4D@1000 BENITA Administration Home Medications Medication Instructions Recorded Levothyroxine [Synthroid -] 50 mcg PO HS 06/18/17 Levothyroxine [Synthroid -] 75 mcg PO AM 06/18/17 Olmesartan/Hydrochlorothiazide 1 tab PO ASDIR 06/18/17 [Benicar Hct 20-12.5MG Tab -] Cephalexin [Keflex] 500 mg PO Q6H #28 capsule 06/20/17 EKG: NSR, rate 73, with PVCs, no ST/ T changes, QTc 440 CXR: no acute cardiopulmonary disease L Tibia/Fibula XRAY (06/18/17): significant soft tissue swelling along anterior margin of the proximal tibial shaft Microbiology 06/19/17 00:39 Blood - Peripheral Venous Blood Culture - Preliminary NO GROWTH OBTAINED AFTER 72 HOURS, INCUBATION TO CONTINUE FOR 2 DAYS. 06/19/17 00:39 Blood - Peripheral Venous Blood Culture - Preliminary NO GROWTH OBTAINED AFTER 72 HOURS, INCUBATION TO CONTINUE FOR 2 DAYS. 06/19/17 00:41 Cellulitis Gram Stain - Final 06/19/17 00:41 Cellulitis Wound Culture - Final Staphylococcus Coagulase Neg ASSESSMENT AND PLAN: Patient is a 72yo woman with PMHx of hypothyroidism, HTN, LE venous insufficiency who sent by biomathematician/PCP to the ED for LLE swelling and L ankle skin lesion with purulent drainage concerning for cellulitis. #Acute LLE cellulitis with Lymphangitis (which improved) in setting of chronic venous insufficiency improving still very mild area of tenderness in the center with whitish discoloration , on IV antibiotic cefazolin as per ID and Vascular on the case. As per upon discharge Keflex 500mg po q6h x 7d next 24hr as per ID . seen the patient covering for , another day of IV antibiotic needed, and culture result is still pendiing with sensitivity . Will her MD who has initial culture ,will see whether anything was growing . Check LLE Duplex U/S :No DVT. final culture is still pending #HTN - c/w home Benicar Q4D (took dose today) #Hypothyroidism - continue home Synthroid 75mcg AM and 50mcg HS # Morbid Obesity: weight loss recommended #PPX - Lovenox 40mg SQ Visit type - Emergency Visit Emergency Visit: Yes ED Registration Date: 06/18/17 Care time: The patient presented to the Emergency Department on the above date and was hospitalized for further evaluation of their emergent condition. - New Patient This patient is new to me today: No - Critical Care Critical Care patient: No - Discharge Referral Referred to [facility] Med P.C.: No
[2017-06-22] MEDS: PATIENT'S OWN MEDICATION (NON-FORMULARY) (Olmesartan/Hydrochlorothiazide [Benicar Hct 20-1 PO SCH ×2 (14:53→21:49)
[2017-06-22 20:53] VITALS: BMI 43.6
[2017-06-22] MEDS: LEVOTHYROXINE NA 50 MCG TABLET (FP) PO SCH (21:49)
[2017-06-23] MEDS: CEFAZOLIN 2 GM/D5W 2 GM/50 ML ML IVPB SCH ×2 (01:13→11:29)
[2017-06-23] MEDS: LEVOTHYROXINE NA 75 MCG TABLET (FP) PO SCH (06:17)
--- NOTE | 2017-06-23 09:56 | PN ---
Physical Exam: SUBJECTIVE: Patient seen and examined at bedside. States that she has decreased pain in LLE, has been OOB. Denies GARCIA, fever, chills, SOB, or changes in urinary or bowel function. OBJECTIVE: Vital Signs Period Temp Pulse Resp BP Sys/Dunbar Pulse Ox Last 24 Hr 97.7 F-98.4 F 72-82 18-20 118-151/60-91 GENERAL: The patient is sitting on side of bed, awake, alert, and fully oriented , in no acute distress. HEAD: Normal with no signs of trauma. EYES: PERRL, extraocular movements intact, sclera anicteric, conjunctiva clear. ENT: Ears normal, nares patent, oropharynx clear without exudates, moist mucous membranes. NECK: Trachea midline, supple. LUNGS: Breath sounds equal, clear to auscultation bilaterally, no wheezes, no crackles, no accessory muscle use. HEART: Regular rate and rhythm, S1, S2 without murmur, rub or gallop. ABDOMEN: Soft, obese, nontender, nondistended, normoactive bowel sounds, no guarding, no rebound EXTREMITIES: 2+ posterior tibial pulses, +b/l chronic venous changes, +warmth (L >R) - improved , +L ankle wound - crusting, without drainage NEUROLOGICAL: Cranial nerves II through XII grossly intact. Normal speech, mild antalgic gait PSYCH: Normal mood, normal affect. SKIN: Warm, dry, normal turgor Active Medications Generic Name Dose Route Start Last Admin Trade Name Freq PRN Reason Stop Dose Admin Acetaminophen 650 mg 06/18/17 23:17 06/22/17 22:53 Tylenol - PO 650 mg Q6H PRN Administration PAIN LEVEL 6-10 Enoxaparin Sodium 40 mg 06/19/17 10:00 06/22/17 10:23 Lovenox - SQ 40 mg DAILY BENITA Administration Cefazolin Sodium/Dextrose 2 gm in 50 mls @ 100 mls/hr 06/19/17 14:30 01:13 Ancef 2 Gm Premixed Ivpb - IVPB 100 mls/hr Q8H-IV BENITA Administration Levothyroxine Sodium 50 mcg 06/18/17 22:00 06/22/17 21:49 Synthroid - PO 50 mcg HS BENITA Administration Levothyroxine Sodium 75 mcg 06/19/17 07:00 06/23/17 06:17 Synthroid - PO 75 mcg AM BENITA Administration Non-Formulary Medication 1 tab 06/18/17 23:59 06/22/17 21:49 Olmesartan/Hydrochlorothiazide [Benicar Hct 20-12.5mg Tab -] PO 1 tab Q4D@1000 BENITA Administration Microbiology 06/19/17 00:41 Cellulitis Gram Stain - Final 06/19/17 00:41 Cellulitis Wound Culture - Preliminary Staphylococcus Coagulase Neg 06/19/17 00:39 Blood - Peripheral Venous Blood Culture - Preliminary NO GROWTH OBTAINED AFTER 24 HOURS, INCUBATION TO CONTINUE FOR 4 DAYS. 06/19/17 00:39 Blood - Peripheral Venous Blood Culture - Preliminary NO GROWTH OBTAINED AFTER 24 HOURS, INCUBATION TO CONTINUE FOR 4 DAYS. Microbiology: Dr. Sargent-podiatry office ; before received vanc/zosyn in ED (+) gram + cocci, staph epidermidis, susceptible to gentamicin, linezolid, cipro , levo, tetracycline, TMP-SMX, vanco Radiology -06/18/17: no acute cardiopulmonary disease is present. -06/18/17: XR L tib/fib: significant tissue swelling along anterior margin of proximal tibial shaft ASSESSMENT/PLAN: 72 y/o F with PMH of HTN, hypothyroidism, chronic LE venous insufficiency, and recent endometrial biopsy who presents to ED from her learning technologist/PCP for LLE swelling and purulent wound on L lower anterior ankle. Pt admitted for LLE cellulitis, lymphangitis. #LLE cellulitis, lymphangitis -With elevated ESR (54), CRP (2.4) -wound cx [facility] (+) staph coag (-) likely from skin. -wound cx. Dr. Sargent office - Podiatry : (+) staph epidermidis -blood cx (-) -Received vancomycin 1.25g IVPB BID, rocephin 2gm IVPB - received one dose () has been d/c -received five day course cefazolin 2gm IVPB q8h -switched to PO keflex 500mg on d/c q6h for 5 day course. with ID f/u as outpt #LLE swelling, chronic venous insufficiency -Vascular consult- Dr. Carvajal ; MERLE bandage wrap recommended -LLE duplex: (-) DVT -f/u as vascular outpt #HTN- controlled -Continue olmesartan/HCTZ (20-12.5mg) q4d #Hypothyroidism -Continue home synthroid 75mcg AM, 50 mcg HS #F/E/N Encourage PO fluid intake monitor lytes Na controlled diet #PPX Lovenox 40mg SQ qd #Dispo for d/c with ID, vascular, primary care, podiatry outpatient f/u Visit type - Emergency Visit Emergency Visit: No - New Patient This patient is new to me today: No - Critical Care Critical Care patient: No
[2017-06-23] MEDS: ENOXAPARIN NA (PORCINE) 40 MG/0.4 ML DISP.SYRIN SQ SCH (11:29)
--- NOTE | 2017-06-23 11:36 | PN ---
Progress Note, Physician Chief Complaint: ID Cefazolin - Current Medication List Current Medications: Active Medications Acetaminophen (Tylenol -) 650 mg PO Q6H PRN PRN Reason: PAIN LEVEL 6-10 Last Admin: 06/22/17 22:53 Dose: 650 mg Enoxaparin Sodium (Lovenox -) 40 mg SQ DAILY [facility] Last Admin: 06/23/17 11:29 Dose: 40 mg Cefazolin Sodium/Dextrose (Ancef 2 Gm Premixed Ivpb -) 2 gm in 50 mls @ 100 mls /hr IVPB Q8H-IV [facility] Last Admin: 06/23/17 11:29 Dose: 100 mls/hr Levothyroxine Sodium (Synthroid -) 50 mcg PO HS [facility] Last Admin: 06/22/17 21:49 Dose: 50 mcg Levothyroxine Sodium (Synthroid -) 75 mcg PO AM [facility] Last Admin: 06/23/17 06:17 Dose: 75 mcg Non-Formulary Medication (Olmesartan/Hydrochlorothiazide [Benicar Hct 20-12.5mg Tab -]) 1 tab PO Q4D@1000 [facility] Last Admin: 06/22/17 21:49 Dose: 1 tab - Objective Vital Signs: Vital Signs Temperature 97.7 F 06/23/17 05:59 Pulse Rate 72 06/23/17 05:59 Respiratory Rate 20 06/23/17 05:59 Blood Pressure 132/74 06/23/17 05:59 O2 Sat by Pulse Oximetry (%) 97 06/21/17 09:00 Constitutional: Yes: Obese Extremities: Yes: Other (Vascular ulcer LLE minimal erythema) Edema: Yes Labs: CBC, BMP 06/21/17 06:00 06/21/17 06:00 Assessment/Plan Microbiology 06/19/17 00:41 Cellulitis Gram Stain - Final 06/19/17 00:41 Cellulitis Wound Culture - Final Staphylococcus Coagulase Neg 06/19/17 00:39 Blood - Peripheral Venous Blood Culture - Preliminary NO GROWTH OBTAINED AFTER 96 HOURS, INCUBATION TO CONTINUE FOR 1 DAYS. 06/19/17 00:39 Blood - Peripheral Venous Blood Culture - Preliminary NO GROWTH OBTAINED AFTER 96 HOURS, INCUBATION TO CONTINUE FOR 1 DAYS. Laboratory Tests 06/21/17 06:00 WBC 5.4 Hgb 12.1 Assessment Obesity venous stasis with insufficiency Max benefit for IV Plan Keflex 500mg qid for 5 days Hedy URRUTIA
[2017-06-23] MEDS ORDERED: CEPHALEXIN MONOHYDRATE 500 MG CAPSULE (UD) PO SCH (12:00)
[2017-06-23 13:49] VITALS: BP 132/75; PULSE 72; TEMP 97.8
--- NOTE | 2017-06-23 15:22 | DS ---
Physical Exam: SUBJECTIVE: Patient seen and examined at bedside. No acute events overnight. States that she has decreased pain in LLE, has been OOB ambulating freely. Family at bedside. Denies GARCIA, fever, chills, SOB, or changes in urinary or bowel function. OBJECTIVE: Vital Signs Period Temp Pulse Resp BP Sys/Dunbar Pulse Ox Last 24 Hr 97 F-98.4 F 72-78 18-20 118-151/60-91 PHYSICAL EXAM GENERAL: The patient is sitting on side of bed, awake, alert, and fully oriented , in no acute distress. HEAD: Normal with no signs of trauma. EYES: PERRL, extraocular movements intact, sclera anicteric, conjunctiva clear. ENT: Ears normal, nares patent, oropharynx clear without exudates, moist mucous membranes. NECK: Trachea midline, supple. LUNGS: Breath sounds equal, clear to auscultation bilaterally, no wheezes, no crackles, no accessory muscle use. HEART: Regular rate and rhythm, S1, S2 without murmur, rub or gallop. ABDOMEN: Soft, obese, nontender, nondistended, normoactive bowel sounds, no guarding, no rebound EXTREMITIES: 2+ posterior tibial pulses, +b/l chronic venous changes, +warmth (L >R) - improved , +L ankle wound - crusting, without drainage NEUROLOGICAL: Cranial nerves II through XII grossly intact. Normal speech, mild antalgic gait PSYCH: Normal mood, normal affect. SKIN: Warm, dry, normal turgor LABS 06/18/17 06/18/17 06/19/17 19:07 19:07 09:50 WBC 6.1 6.3 Hgb 12.3 12.8 Hct 35.9 37.4 Plt Count 215 217 Sodium 141 Potassium 4.0 Chloride 106 Carbon Dioxide 28 BUN 16 Creatinine 1.0 AST 17 ALT 22 06/19/17 06/20/17 06/20/17 09:50 06:00 06:00 WBC 6.0 Hgb 12.8 Hct 37.7 Plt Count 215 Sodium 139 140 Potassium 4.0 4.1 Chloride 104 105 Carbon Dioxide 28 29 BUN 13 12 Creatinine 1.0 1.1 H AST ALT 06/21/17 06/21/17 06:00 06:00 WBC 5.4 Hgb 12.1 Hct 35.3 Plt Count 198 Sodium 139 Potassium 4.0 Chloride 103 Carbon Dioxide 29 BUN 11 Creatinine 1.0 AST ALT Microbiology 06/19/17 00:41 Cellulitis Gram Stain - Final 06/19/17 00:41 Cellulitis Wound Culture - Preliminary Staphylococcus Coagulase Neg 06/19/17 00:39 Blood - Peripheral Venous Blood Culture - Preliminary NO GROWTH OBTAINED AFTER 24 HOURS, INCUBATION TO CONTINUE FOR 4 DAYS. 06/19/17 00:39 Blood - Peripheral Venous Blood Culture - Preliminary NO GROWTH OBTAINED AFTER 24 HOURS, INCUBATION TO CONTINUE FOR 4 DAYS. Microbiology: Dr. Sargent-podiatry office ; before received vanc/zosyn in ED (+) gram + cocci, staph epidermidis, susceptible to gentamicin, linezolid, cipro , levo, tetracycline, TMP-SMX, vanco Radiology -06/18/17: no acute cardiopulmonary disease is present. -06/18/17: XR L tib/fib: significant tissue swelling along anterior margin of proximal tibial shaft -06/19/17: LLE duplex: (-) DVT HOSPITAL COURSE: Date of Admission:06/18/17 Date of Discharge: 06/23/17 Admit diagnosis: LLE cellulitis, lymphangitis 72 y/o F with PMH of HTN, hypothyroidism, chronic LE venous insufficiency, and recent endometrial biopsy who presented to ED from her accountant helper/PCP for LLE swelling and purulent wound on L lower anterior ankle. Pt was sent to the [facility] ED for further evaluation and was admitted for LLE cellulitis and lymphangitis. While pt was managed on the floor, she was seen by ID and vascular. In the ED, she was started on vancomycin for MRSA coverage and ceftriaxone for gram negative coverage and wound, blood, and urine cultures were sent. Pt abx were switched to cefazolin and she completed a five day course. At [facility], her wound cx returned positive for staph coag neg bacteria. Pt's accountant helper was reached and wound cx performed in the outpatient office returned positive for staph epidermidis. Pt was discharged home on keflex 500mg PO q6h for a five day course. She will f/u with ID as an outpatient in a week. While hospitalized, pt also underwent LLE duplex which was negative for DVT. However, she will f/u with vascular as an outpt for her chronic LE venous insufficiency, her primary care physician and her accountant helper in a wk. Minutes to complete discharge: 38 <Dilma Diaz - Last Filed: 06/23/17 15:36> Physical Exam: Patient feels well , no fever or chills, no shortness of breath. called Her accountant helper and culture and sensitivity was faxed to us and placed in the chart, discussed with ID, and aware with the culture result and sensitivity . As per ID patient to go home on Keflex 500mg po q6h x 5 more days. patient will follow with PMD, accountant helper and ID within a week period. Vital Signs Temperature 97.8 F 06/23/17 13:47 Pulse Rate 72 06/23/17 13:47 Respiratory Rate 20 06/23/17 13:47 Blood Pressure 132/75 06/23/17 13:47 O2 Sat by Pulse Oximetry (%) 97 06/21/17 09:00 CBCD WBC 5.4 K/mm3 (4.0-10.0) 06/21/17 06:00 RBC 3.99 M/mm3 (3.60-5.2) 06/21/17 06:00 Hgb 12.1 GM/dL (10.7-15.3) 06/21/17 06:00 Hct 35.3 % (32.4-45.2) 06/21/17 06:00 MCV 88.5 fl (80-96) 06/21/17 06:00 MCHC 34.2 g/dl (32.0-36.0) 06/21/17 06:00 RDW 13.7 % (11.6-15.6) 06/21/17 06:00 Plt Count 198 K/MM3 (134-434) 06/21/17 06:00 MPV 8.1 fl (7.5-11.1) 06/21/17 06:00 CMP Sodium 139 mmol/L (136-145) 06/21/17 06:00 Potassium 4.0 mmol/L (3.5-5.1) 06/21/17 06:00 Chloride 103 mmol/L (98-107) 06/21/17 06:00 Carbon Dioxide 29 mmol/L (21-32) 06/21/17 06:00 Anion Gap 7 (8-16) L 06/21/17 06:00 BUN 11 mg/dL (7-18) 06/21/17 06:00 Creatinine 1.0 mg/dL (0.55-1.02) 06/21/17 06:00 Creat Clearance w eGFR 54.35 (>60) 06/18/17 19:07 Random Glucose 84 mg/dL (74-106) 06/21/17 06:00 Calcium 9.3 mg/dL (8.5-10.1) 06/21/17 06:00 Total Bilirubin 0.5 mg/dL (0.2-1.0) 06/18/17 19:07 AST 17 U/L (15-37) 06/18/17 19:07 ALT 22 U/L (12-78) 06/18/17 19:07 Alkaline Phosphatase 62 U/L (45-117) 06/18/17 19:07 Total Protein 7.2 g/dl (6.4-8.2) 06/18/17 19:07 Albumin 3.8 g/dl (3.4-5.0) 06/18/17 19:07 Home Medications Medication Instructions Recorded Levothyroxine [Synthroid -] 50 mcg PO HS 06/18/17 Levothyroxine [Synthroid -] 75 mcg PO AM 06/18/17 Olmesartan/Hydrochlorothiazide 1 tab PO ASDIR 06/18/17 [Benicar Hct 20-12.5MG Tab -] Cephalexin Monohydrate [Keflex -] 500 mg PO Q6HPO #20 capsule 06/23/17 <Vargas Hinds - Last Filed: 06/23/17 16:21> Discharge Summary Reason For Visit: CELLULITIS OF LOWER EXTREMITY - Home Medications Comprehensive Discharge Medication List: Ambulatory Orders Levothyroxine [Synthroid -] 50 mcg PO HS 06/18/17 Levothyroxine [Synthroid -] 75 mcg PO AM 06/18/17 Olmesartan/Hydrochlorothiazide [Benicar Hct 20-12.5MG Tab -] 1 tab PO ASDIR 10/28 Cephalexin Monohydrate [Keflex -] 500 mg PO Q6HPO #20 capsule 06/23/17 <Dilma Diaz - Last Filed: 06/23/17 15:36> - Home Medications Comprehensive Discharge Medication List: Ambulatory Orders Levothyroxine [Synthroid -] 50 mcg PO HS 06/18/17 Levothyroxine [Synthroid -] 75 mcg PO AM 06/18/17 Olmesartan/Hydrochlorothiazide [Benicar Hct 20-12.5MG Tab -] 1 tab PO ASDIR 10/28 Cephalexin Monohydrate [Keflex -] 500 mg PO Q6HPO #20 capsule 06/23/17 <Vargas Hinds - Last Filed: 06/23/17 16:21> Condition: Stable - Instructions Diet, Activity, Other Instructions: You were in the hospital due to cellulitis of your left leg, which likely tracked through the lymphatic system to your left groin. This is called lymphangitis. While you were in the hospital, you had blood cultures done which were negative, however you had a wound culture that grew staph epidermidis bacteria.You were seen by ID and warper creeler. Please take the antibiotic: Keflex. 1 tablet every six hours for the next five days. We would like you to follow up with your accountant helper in a week, as well as: -Dr. Carvajal; vascular specialist - 1 week -Dr. Lucas; primary care - 1 week In order to discuss your visit. If you develop chest pain, or your wound worsens and you develop fever and chills, please go to the hospital. We hope you feel better soon. Referrals: Tony Lucas MD [Primary Care Provider] - Jasmeet Carvajal MD [Staff Physician] - Disposition: HOME This patient is new to me today: No Emergency Visit: No Critical Care patient: No - Discharge Referral Referred to [facility] Med P.C.: No <Dilma Diaz - Last Filed: 06/23/17 15:36>
== END 2017-06-23 15:10 | disposition home or self-care (01) | DRG 920 ==
LOC: JER 18:02 → JERBED 22:24 → J7W 06-19 04:29
PROVIDERS: ADMIT Internal Medicine; ATTEND Internal Medicine
DX: T81.9XXA Unspecified complication of procedure, initial encounter (principal); L03.116 Cellulitis of left lower limb; Z68.41 Body mass index [BMI] 40.0-44.9, adult; I10 Essential (primary) hypertension; E03.9 Hypothyroidism, unspecified; I87.2 Venous insufficiency (chronic) (peripheral); I89.1 Lymphangitis; E66.01 Morbid (severe) obesity due to excess calories; Y83.8 Other surgical procedures as the cause of abnormal reaction of the patient, or of later complication, without mention of misadventure at the time of the procedure
CPT/HCPCS: 36415; 71045-TC-FY; 73590-TC-LT-FY; 80048; 80053; 81003; 85025; 85651; 86140; 87040; 87070; 87205; 93005; 93010; 93971-TC; 97116-GP; 97161-GP; 99283-25